=== PATIENT | male | born 1970 | race Hispanic/Latino ===

== ENCOUNTER 2022-02-09 12:40 | Emergency (ER) | payer SELFPAY ==
[2022-02-09] MEDS ORDERED: Boostrix 0.5 ML (Tdap) VIAL ONE (13:27)
[2022-02-09] MEDS ORDERED: Lidocaine 1% (PF) 30 ML VIAL ONE (13:27)
[2022-02-09] MEDS ORDERED: Bacitracin 1 PK ONE (14:17)
[2022-02-09] MEDS ORDERED: Amoxicillin/Potassium Clav 875 MG TAB ONE (14:17)
[2022-02-09] MEDS ORDERED: traMADol HCl 50 MG TAB ONE (14:17)
== END 2022-02-09 14:55 | disposition home or self-care (01) ==
LOC: MADERS 12:40
DX: S68.120A Partial traumatic metacarpophalangeal amputation of right index finger, initial encounter (principal); W23.0XXA Caught, crushed, jammed, or pinched between moving objects, initial encounter; Y99.0 Civilian activity done for income or pay; Z23 Encounter for immunization
CPT/HCPCS: 11760; 90471; 90715; J2001